=== PATIENT | female | born 1955 | race Caucasian/White ===

== ENCOUNTER → 2017-08-16 | Outpatient (CLI) | payer MEDICARE, OTHER ==
[~2017-08-16] MED LIST: ADVAIR HFA 230M12 GM INH; COLACE100 MG PO; COZAAR 50 MG TA50 M2 PO; DOLOPHINE HCL5 MG PO; DULOXETINE HCL60 MG PO; IMITREX100 MG PO; IRON325 PO; LYRICA 50 MG50 MG PO; MAGOX 400400 MG PO; MULTIPLE VITAM1 EAC2 PO; PERCOCET 5-3251 EACH PO; REMERON15 MG PO; SINGULAIR 10 MG10 M1 PO; XARELTO10 MG PO; ZANAFLEX4 MG PO; ZIPSOR25 MG PO
== END ==
LOC: M.MRI 12:33
DX: M17.12 Unilateral primary osteoarthritis, left knee (principal); M25.462 Effusion, left knee

== ENCOUNTER 2017-10-09 06:15 | Inpatient (IN) | payer MEDICARE, OTHER ==
[2017-09-27 09:21] LABS: HEMATOCRIT 38.1 % (37.0-47.0); HEMOGLOBIN 12.7 gm/dL (12.0-15.0); MCH 29.8 pg (26.0-34.0); MCHC 33.2 g/dL (28.0-37.0); MCV 89.7 fL (80.0-100.0); MPV 11.4 fl. (7.2-11.1); RBC 4.25 mil/uL (4.20-5.00); RDW-CV 13.4 % (10.5-14.5); WBC 5.4 thou/uL (4.0-11.0)
[2017-09-27 09:37] LABS: URINE BILIRUBIN NEGATIVE (Negative); URINE BLOOD NEGATIVE (Negative); URINE CLARITY CLEAR; URINE COLOR YELLOW; URINE GLUCOSE-RANDOM NEGATIVE (Negative); URINE KETONES NEGATIVE (Negative); URINE LEUKOCYTES-REFLEX NEGATIVE (Negative); URINE NITRITE-REFLEX NEGATIVE (Negative); URINE PROTEIN NEGATIVE (Negative); URINE SPECIFIC GRAVITY <= 1.005 (1.005-1.030); URINE UROBILINOGEN 0.2 E.U./dl (0.2-1.0)
[2017-09-27 09:38] LABS: ALBUMIN 3.6 g/dL (3.4-5.0); CALCIUM 9.5 mg/dL (8.5-10.1); CREATININE 1.1 mg/dL (0.6-1.3); TOTAL BILIRUBIN 0.5 mg/dL (<0.1-1.0); TOTAL PROTEIN 7.5 g/dL (6.4-8.2)
--- NOTE | 2017-09-27 11:33 | EKG ---
[place] [address] ELECTROCARDIOGRAM REPORT Name: DOUGLAS DOS SANTOS Room: PRE IN [facility]#: [id number] Admission: Attend Phys: Jennifer Collins Discharge: Date of : 57 Report #: [id number] THIS REPORT FOR: //name// [facility] Test Date: 2017-09-27 Test Time: 09:02:06 Pat Name: DOUGLAS DOS SANTOS Department: Room: Gender: F [employer]: : 1955 Requested By: Donnell Figueroa Order Number: [id number] Reading MD: Tyron Ortega Measurements Intervals Jackson Rate: 90 P: 54 GA: 196 QRS: -8 QRSD: 86 T: 32 QT: 356 QTc: 436 Interpretive Statements Sinus rhythm Compared to ECG 11/07/2007 13:11:12 T-wave abnormality no longer present Electronically Signed On 09-27-2017 11:32:50 CDT by Tyron Ortega [email or web address] <ELECTRONICALLY SIGNED> By: Tyron Ortega MD, [facility] 09/27/17 1132 0902 1 Tyron Ortega MD, FACC /EPI
[~2017-10-09] VITALS: Ht 157.5 cm; Wt 87.1 kg
[~2017-10-09 06:15] MED LIST changes: -COLACE100 MG PO; -PERCOCET 5-3251 EACH PO; -XARELTO10 MG PO
[2017-10-09 07:21] VITALS: BP 131/72
[2017-10-09 12:30] VITALS: BP 134/84
[2017-10-09 15:47] VITALS: BP 110/69
[2017-10-10] VITALS: BP 120/59
[2017-10-10 04:38] VITALS: BP 108/49
[2017-10-10 05:02] LABS: HEMATOCRIT 30.8 % (37.0-47.0)
[2017-10-10 08:10] VITALS: BP 112/53
[2017-10-10 13:21] VITALS: BP 112/53
[2017-10-10] MEDS ORDERED: XARELTO10 MG PO (14:25)
[2017-10-10] MEDS ORDERED: PERCOCET 5-3251 EACH PO (14:26)
[2017-10-10] MEDS ORDERED: COLACE100 MG PO (15:27)
--- NOTE | 2017-10-10 21:45 | OP ---
[facility] [address] [place] [address] OPERATIVE REPORT Name: DOUGLAS DOS SANTOS Room: [address] IN .R.#: [id number] Admission: 10/09/17 Attend Phys: Jennifer Collins Discharge: 10/10/17 Date of : 57 Report #: [id number] THIS REPORT FOR: //name// CC: Donnell Wolff DATE OF SERVICE: 10/09/2017 PREOPERATIVE DIAGNOSIS: Left knee osteoarthritis. POSTOPERATIVE DIAGNOSIS: Left knee osteoarthritis. PROCEDURE: Left total knee arthroplasty. ANESTHESIA: General endotracheal. ESTIMATED BLOOD LOSS: 50 mL. SURGEON: Donnell Figueroa II, DO TYPING SECRETARY: ALDAIR Allen. ANTIBIOTICS: Ancef preoperatively. DRAINS: Medium Hemovac. COMPLICATIONS: None. CONDITION: The patient stable to recovery room. IMPLANTS: Listed in the operative record and progress note. BRIEF HISTORY: The patient was seen in preoperative area. Preoperative H and P was performed. Site was marked, questions were answered. Risks and benefits were discussed with the patient in detail about the surgery. The patient wished to procedure, assumed all risks. DESCRIPTION OF PROCEDURE: The patient was taken to the operative suite, placed supine on the operating room table and given appropriate anesthesia. A well-padded tourniquet was applied in the upper thigh, which inflated to 300 mmHg after gravity exsanguination. The operative knee was sterilely prepped and draped. Surgery was begun by midline incision. This was carried down to subcutaneous tissues. A medial parapatellar arthrotomy was performed and carried down to the bone. Patella was then everted and excess soft tissue removed from around the femur. A femoral cutting guide was then applied, [place] [id number] OPERATIVE REPORT Name: DOUGLAS DOS SANTOS Room: [address]#: [id number] Admission: 10/09/17 Attend Phys: Jennifer Collins Discharge: 10/10/17 Date of : 57 Report #: [id number] checked with a drop concepcion for rotational alignment, pinned into appropriate position and appropriate cuts were made. A 4-in-1 cutting block was then applied, checked for rotational alignment, pinned in appropriate position and appropriate cuts were made. The tibia was then exposed. The excess meniscus was removed. Retraction was placed on the collateral ligaments. The tibial cutting block was then applied, pinned in appropriate position, checked with a drop concepcion for rotational alignment and slope and appropriate cut was made. Tibial bone was removed. Tibial base plate was then applied and checked for rotational alignment with the drop concepcion and pinned in appropriate position. The femur was then applied in box that was reamed. This was then trialed with the appropriate spacer, which showed excellent fit and fill and excellent stability of the knee through all range of motion. The patella was then reamed in appropriate fashion and sized to appropriate size. Three peg holes were drilled. It was then trialed and it showed excellent flexion and extension and excellent tracking of the patella within the groove. These trials were then removed. The tibia was punched in appropriate fashion. Bone ends were cleansed with Pulsavac irrigation and cement was mixed and applied to the final implants. These were then malleted in position and held the knee in extension and compressed to allow the cement to cure. After it cured, excess was removed utilizing a Fouke and osteotome. The wound was then copiously irrigated and the final spacer was then malleted in position. The tourniquet was deflated. Hemostasis was maintained with electrocautery and cocktail was injected. PRP gel was sprayed throughout the internal aspects of the knee. A medium Hemovac drain was applied. Capsule was closed with two FiberWire in a [id number] fashion. Skin was closed with 2-0 Vicryl and running 3-0 Monocryl. Dermabond and sterile dressing applied. Edward wrap and PolarCare were applied. The patient was transported to the recovery in stable condition. Counts were correct throughout the procedure. <ELECTRONICALLY SIGNED> By: Donnell Figueroa II, DO 10/10/17 [id number] 1337Donnell Figueroa II, DO /nt
== END 2017-10-10 16:35 | disposition home health service (06) | DRG 470 ==
LOC: M.PRE → M.TBA 06:51 → M.PRE 09:20 → M.ORTHSURG 11:39 → M.PRE 12:33 → M.ORTHSURG 10-10 16:35
PROVIDERS: Orthopaedic Surgery; ADMIT Internal Medicine
PROC: 0SRD0J9 Replacement of Left Knee Joint with Synthetic Substitute, Cemented, Open Approach (ICD-10-PCS; principal; 2017-10-09)
DX: M17.12 Unilateral primary osteoarthritis, left knee (principal); Z96.1 Presence of intraocular lens; J45.909 Unspecified asthma, uncomplicated; I10 Essential (primary) hypertension; M25.462 Effusion, left knee; G43.909 Migraine, unspecified, not intractable, without status migrainosus; G62.9 Polyneuropathy, unspecified; K21.9 Gastro-esophageal reflux disease without esophagitis; D64.9 Anemia, unspecified; E66.9 Obesity, unspecified; Z96.651 Presence of right artificial knee joint; Z68.35 Body mass index [BMI] 35.0-35.9, adult; Z91.040 Latex allergy status; Z98.42 Cataract extraction status, left eye; Z98.41 Cataract extraction status, right eye